=== PATIENT | female | born 1985 | race Caucasian/White ===

== ENCOUNTER 2018-04-22 14:04 | Inpatient (IN) | payer SELFPAY ==
[~2018-04-22] VITALS: Ht 162.6 cm; Wt 77.6 kg
[2018-04-22] MEDS ORDERED: ONDANSETRON 2MG/ML, 2ML ONE (14:07)
[2018-04-22] MEDS ORDERED: MORPHINE SULFATE 4 MG/ML, 1ML ONE ×2 (14:07→16:44)
[2018-04-22] MEDS ORDERED: SODIUM CHLORIDE FLUSH 10ML SYR IVF ONE (14:30)
[2018-04-22] MEDS ORDERED: ONDANSETRON ODT 4 MG PO ONE (14:30)
[2018-04-22 14:32] LABS: BASOPHILS # (AUTO) 0.08 x10^3/uL (0-0.1); BASOPHILS % (AUTO) 1 % (0-1); EOSINOPHILS % (AUTO) 0 % (1-7); LYMPHOCYTES # (AUTO) 1.95 x10^3/uL (1-3.4); LYMPHOCYTES % (AUTO) 14 % (22-44); MD NO; MEAN CORPUSCULAR HEMOGLOBIN 26.9 pg (27.0-34.8); MEAN CORPUSCULAR HGB CONC 32.5 g/dL (32.4-35.8); MEAN CORPUSCULAR VOLUME 82.9 fL (80-100); MEAN PLATELET VOLUME 8.5 fL (7.4-10.4); MONOCYTES # (AUTO) 0.64 x10^3/uL (0.2-0.8); MONOCYTES % (AUTO) 5 % (2-9); NEUTROPHILS # (AUTO) 11.62 x10^3/uL (1.8-6.8); NEUTROPHILS % (AUTO) 81 % (42-75); PLATELET COUNT 334 x10^3/uL (130-400); RED BLOOD COUNT 3.82 x10^6/uL (3.82-5.3); RED CELL DISTRIBUTION WIDTH 17.6 % (9.6-15.2)
[2018-04-22] MEDS ORDERED: APIX5TAB PO (14:32)
[2018-04-22 14:40] LABS: INTERNATIONAL NORMALIZED RATIO 1.08 (0.93-1.1); PROTHROMBIN TIME 11.2 Seconds (9.6-11.5)
[2018-04-22 14:41] LABS: ALANINE AMINOTRANSFERASE 34 U/L (12-78); ALBUMIN 3.6 g/dL (3.4-5.0); ANION GAP 11 mmol/L (5-15); CALCIUM 8.7 mg/dL (8.5-10.1); CHLORIDE 107 mmol/L (98-107); CREATININE 0.67 mg/dL (0.55-1.02)
[2018-04-22] MEDS ORDERED: ONDANSETRON ODT 4 MG ONE (14:41)
[2018-04-22 14:44] LABS: ALKALINE PHOSPHATASE 87 U/L (45-117); BILIRUBIN,TOTAL 1.7 mg/dL (0.2-1.0); TOTAL PROTEIN 7.5 g/dL (6.4-8.2)
[2018-04-22] MEDS: MORPHINE SULFATE 4 MG/ML, 1ML IVPush PRN ×2 (14:58→16:48)
[2018-04-22] MEDS ORDERED: POLYETHYLENE GLYCOL 17 GM PACKET PO PRN (18:30)
[2018-04-22] MEDS ORDERED: ONDANSETRON ODT 4 MG PO PRN (18:30)
[2018-04-22] MEDS ORDERED: BISACODYL 10 MG SUPP PR PRN (18:30)
[2018-04-22 19:05] VITALS: BP 124/84
[2018-04-22 19:09] VITALS: BP 124/84
[2018-04-22 20:09] VITALS: BP 124/84
[2018-04-22] MEDS: ACETAMINOPHEN 325 MG TABLET PO PRN (20:58)
[2018-04-22] MEDS: SODIUM CHLORIDE FLUSH 10ML SYR IVF SCH (21:30)
[2018-04-23 02:41] VITALS: BP 100/67
[2018-04-23 05:36] LABS: BASOPHILS # (AUTO) 0.05 x10^3/uL (0-0.1); BASOPHILS % (AUTO) 1 % (0-1); EOSINOPHILS # (AUTO) 0.09 x10^3/uL (0-0.4); EOSINOPHILS % (AUTO) 1 % (1-7); LYMPHOCYTES # (AUTO) 3.09 x10^3/uL (1-3.4); LYMPHOCYTES % (AUTO) 39 % (22-44); MD NO; MEAN CORPUSCULAR HGB CONC 32.1 g/dL (32.4-35.8); MEAN CORPUSCULAR VOLUME 84.2 fL (80-100); MEAN PLATELET VOLUME 8.6 fL (7.4-10.4); MONOCYTES # (AUTO) 0.74 x10^3/uL (0.2-0.8); MONOCYTES % (AUTO) 9 % (2-9); NEUTROPHILS # (AUTO) 3.91 x10^3/uL (1.8-6.8); NEUTROPHILS % (AUTO) 50 % (42-75); PLATELET COUNT 293 x10^3/uL (130-400); RED BLOOD COUNT 3.78 x10^6/uL (3.82-5.3); RED CELL DISTRIBUTION WIDTH 17.5 % (9.6-15.2)
[2018-04-23 05:44] LABS: ALBUMIN 3.3 g/dL (3.4-5.0); ANION GAP 7 mmol/L (5-15); CALCIUM 8.9 mg/dL (8.5-10.1); CHLORIDE 106 mmol/L (98-107)
[2018-04-23 05:51] LABS: ALANINE AMINOTRANSFERASE 30 U/L (12-78); ALKALINE PHOSPHATASE 83 U/L (45-117); BILIRUBIN,TOTAL 2.5 mg/dL (0.2-1.0); CREATININE 0.69 mg/dL (0.55-1.02); TOTAL PROTEIN 7.2 g/dL (6.4-8.2)
[2018-04-23 08:20] VITALS: BP 103/69
[2018-04-23] MEDS: SODIUM CHLORIDE FLUSH 10ML SYR IVF SCH ×2 (09:00→20:59)
[2018-04-23] MEDS: morphine SULFATE 10 MG/ML, 1ML IVPush PRN ×2 (09:18→14:40)
[2018-04-23] MEDS: SENNA/DOCUSATE TABLET PO SCH (09:19)
[2018-04-23 13:10] VITALS: BP 91/60
[2018-04-23 19:53] VITALS: BP 98/65
[2018-04-24] MEDS: morphine SULFATE 10 MG/ML, 1ML IVPush PRN ×4 (00:04→21:39)
[2018-04-24] MEDS: LACTATED RINGERS 1,000 ML IV SCH ×2 (00:16→10:29)
[2018-04-24 00:49] VITALS: BP 99/65
[2018-04-24 05:57] LABS: CHLORIDE 104 mmol/L (98-107)
[2018-04-24 06:06] LABS: ALANINE AMINOTRANSFERASE 57 U/L (12-78); ALKALINE PHOSPHATASE 92 U/L (45-117); ANION GAP 8 mmol/L (5-15); BILIRUBIN, DIRECT 0.3 mg/dL (0.1-0.2); BILIRUBIN,TOTAL 1.6 mg/dL (0.2-1.0); CALCIUM 8.7 mg/dL (8.5-10.1); CREATININE 0.66 mg/dL (0.55-1.02); TOTAL PROTEIN 6.9 g/dL (6.4-8.2)
[2018-04-24 06:28] LABS: BASOPHILS # (AUTO) 0.04 x10^3/uL (0-0.1); BASOPHILS % (AUTO) 1 % (0-1); EOSINOPHILS # (AUTO) 0.08 x10^3/uL (0-0.4); EOSINOPHILS % (AUTO) 1 % (1-7); LYMPHOCYTES # (AUTO) 3.05 x10^3/uL (1-3.4); LYMPHOCYTES % (AUTO) 37 % (22-44); MD NO; MEAN CORPUSCULAR HEMOGLOBIN 27.1 pg (27.0-34.8); MEAN CORPUSCULAR HGB CONC 32.4 g/dL (32.4-35.8); MEAN CORPUSCULAR VOLUME 83.8 fL (80-100); MEAN PLATELET VOLUME 8.3 fL (7.4-10.4); MONOCYTES # (AUTO) 0.53 x10^3/uL (0.2-0.8); MONOCYTES % (AUTO) 7 % (2-9); NEUTROPHILS # (AUTO) 4.54 x10^3/uL (1.8-6.8); NEUTROPHILS % (AUTO) 55 % (42-75); PLATELET COUNT 265 x10^3/uL (130-400); RED CELL DISTRIBUTION WIDTH 17.1 % (9.6-15.2)
[2018-04-24] MEDS: SODIUM CHLORIDE FLUSH 10ML SYR IVF SCH ×2 (08:25→21:00)
[2018-04-24] MEDS: SENNA/DOCUSATE TABLET PO SCH (08:25)
[2018-04-24 08:46] VITALS: BP 117/75
[2018-04-24] MEDS ORDERED: FENTANYL PF 250 MCG/5ML ONE (12:25)
[2018-04-24] MEDS ORDERED: PROCHLORPERAZINE 5 MG/ML, 2ML IV PRN (13:00)
[2018-04-24] MEDS ORDERED: DIPHENHYDRAMINE 50 MG/ML, 1ML IVPush PRN (13:00)
[2018-04-24] MEDS ORDERED: HYDROmorphone 1 MG/ML, 1ML IV PRN (13:00)
[2018-04-24] MEDS ORDERED: LABETALOL 5MG/ML, 20ML IV PRN (13:00)
[2018-04-24] MEDS ORDERED: FENTANYL PF 100 MCG/2ML IV PRN (13:00)
[2018-04-24] MEDS ORDERED: hydrALAzine 20 MG/ML, 1ML IV PRN (13:00)
[2018-04-24] MEDS ORDERED: MEPERIDINE/PF 25MG/0.5ML IVPush PRN (13:00)
[2018-04-24] MEDS ORDERED: OXYcodone 5 MG/5 ML ORAL.SOL UDC PO PRN (13:00)
[2018-04-24 13:13] LABS: HCG UR SG 1.017 (1.003-1.030)
[2018-04-24] MEDS ORDERED: PHENYLEPHRINE 10 MG/ML ONE (13:15)
[2018-04-24] MEDS ORDERED: LIDOCAINE 1%-EPI 1:100K, 30ML INFIL ONE (13:53)
[2018-04-24] MEDS ORDERED: SUCCINYLCHOLINE 20 MG/ML, 10ML ONE (15:14)
[2018-04-24] MEDS ORDERED: PROPOFOL 10 MG/ML, 20ML ONE (15:14)
[2018-04-24] MEDS ORDERED: CEFAZOLIN 1,000 MG ONE (15:14)
[2018-04-24] MEDS ORDERED: DEXAMETHASONE 4 MG/ML, 1ML ONE (15:14)
[2018-04-24] MEDS ORDERED: NEOSTIGMINE 1 MG/ML, 10ML ONE (15:14)
[2018-04-24] MEDS ORDERED: GLYCOPYRROLATE 0.2MG/1ML, 5ML ONE (15:14)
[2018-04-24] MEDS ORDERED: ONDANSETRON 2MG/ML, 2ML ONE (15:14)
[2018-04-24] MEDS ORDERED: ROCURONIUM 10MG/ML,5ML ONE (15:14)
[2018-04-24] MEDS ORDERED: OXYcodone 5 MG/5 ML ORAL.SOL UDC ONE (15:34)
[2018-04-24] MEDS ORDERED: FENTANYL PF 100 MCG/2ML ONE (16:13)
[2018-04-24] MEDS ORDERED: LACTATED RINGERS 1,000 ML IV SCH (17:30)
[2018-04-24 20:51] VITALS: BP 119/82
[2018-04-24] MEDS ORDERED: CEFAZOLIN 2,000 MG in SODIUM CHLORIDE 0.9% 50 ML IVPB SCH (21:00)
[2018-04-24] MEDS: CEFAZOLIN 2,000 MG in SODIUM CHLORIDE 0.9% 50 ML IVPB SCH (22:23)
[2018-04-25 01:02] VITALS: BP 115/78
[2018-04-25] MEDS: morphine SULFATE 10 MG/ML, 1ML IVPush PRN (01:46)
[2018-04-25 04:16] VITALS: BP 103/69
[2018-04-25 05:48] LABS: BASOPHILS # (AUTO) 0.05 x10^3/uL (0-0.1); BASOPHILS % (AUTO) 1 % (0-1); EOSINOPHILS # (AUTO) 0.01 x10^3/uL (0-0.4); EOSINOPHILS % (AUTO) 0 % (1-7); LYMPHOCYTES # (AUTO) 1.88 x10^3/uL (1-3.4); LYMPHOCYTES % (AUTO) 18 % (22-44); MD NO; MEAN CORPUSCULAR HEMOGLOBIN 27.1 pg (27.0-34.8); MEAN CORPUSCULAR HGB CONC 32.5 g/dL (32.4-35.8); MEAN CORPUSCULAR VOLUME 83.4 fL (80-100); MEAN PLATELET VOLUME 8.7 fL (7.4-10.4); MONOCYTES # (AUTO) 0.78 x10^3/uL (0.2-0.8); MONOCYTES % (AUTO) 8 % (2-9); NEUTROPHILS # (AUTO) 7.67 x10^3/uL (1.8-6.8); NEUTROPHILS % (AUTO) 74 % (42-75); PLATELET COUNT 278 x10^3/uL (130-400); RED BLOOD COUNT 3.43 x10^6/uL (3.82-5.3); RED CELL DISTRIBUTION WIDTH 17.5 % (9.6-15.2)
[2018-04-25 06:00] LABS: CHLORIDE 105 mmol/L (98-107)
[2018-04-25 06:04] LABS: ANION GAP 9 mmol/L (5-15); CALCIUM 8.4 mg/dL (8.5-10.1)
[2018-04-25] MEDS: CEFAZOLIN 2,000 MG in SODIUM CHLORIDE 0.9% 50 ML IVPB SCH (06:19)
[2018-04-25 07:40] VITALS: BP 112/73
[2018-04-25] MEDS: SENNA/DOCUSATE TABLET PO SCH (08:22)
[2018-04-25] MEDS: ACETAMINOPHEN 325 MG TABLET PO PRN (08:22)
[2018-04-25] MEDS: SODIUM CHLORIDE FLUSH 10ML SYR IVF SCH (08:24)
[2018-04-25] MEDS ORDERED: APIXABAN 5 MG TABLET PO SCH (10:00)
[2018-04-25] MEDS ORDERED: OXYcodone 5 MG/5 ML ORAL.SOL UDC PO PRN (10:00)
[2018-04-25 12:20] VITALS: BP 117/77
[2018-04-25] MEDS ORDERED: HYDR-3653 PO (14:00)
[2018-04-25] MEDS ORDERED: CEPH-368 PO (14:00)
[2018-04-25 15:58] VITALS: BP 107/67
== END 2018-04-25 16:15 | disposition home or self-care (01) | DRG 131 ==
LOC: ED 17:13 → EDIP 18:06 → 4NOR 19:01
PROVIDERS: ADMIT Family Medicine; ATTEND Family Medicine
PROC: 0NSN04Z Reposition Left Zygomatic Bone with Internal Fixation Device, Open Approach (ICD-10-PCS; principal; 2018-04-24 13:00)
DX: S02.40FA Zygomatic fracture, left side, initial encounter for closed fracture (principal); S02.32XA Fracture of orbital floor, left side, initial encounter for closed fracture; D68.51 Activated protein C resistance; D68.59 Other primary thrombophilia; E87.2 Acidosis; S02.40DA Maxillary fracture, left side, initial encounter for closed fracture; D64.9 Anemia, unspecified; F15.90 Other stimulant use, unspecified, uncomplicated; Y04.0XXA Assault by unarmed brawl or fight, initial encounter; E80.6 Other disorders of bilirubin metabolism; I10 Essential (primary) hypertension; I27.20 Pulmonary hypertension, unspecified; D72.829 Elevated white blood cell count, unspecified; Z79.01 Long term (current) use of anticoagulants; Y93.89 Activity, other specified; Y92.89 Other specified places as the place of occurrence of the external cause; Y99.8 Other external cause status; Z90.49 Acquired absence of other specified parts of digestive tract; Z90.89 Acquired absence of other organs; Z86.711 Personal history of pulmonary embolism
CPT/HCPCS: 36415; 87806; 99285; J3490; 70450; 70486; 80048; 80053; 80074; 81025; 82248; 85025; 85610; 85730; C1713; G0378; J0690; J1100; J2405; J2704; J2710; J3010; Q0162; G0475; J0330; J2270; J2370; J7120